=== PATIENT | female | born 1940 | race Caucasian/White ===

== ENCOUNTER 2016-09-30 07:20 | Day surgery (SDC) | payer MEDICARE ==
[2016-09-30] VITALS (8 sets, daily range): BP systolic 126–157; BP diastolic 75–86; PULSE 74–87; TEMP 97.1
[~2016-09-30] VITALS: Ht 154.9 cm; Wt 88.4 kg
[2016-09-30] MEDS ORDERED: BENICAR 20MG TA20 MG PO (08:54)
[2016-09-30] MEDS ORDERED: MOBIC15 MG PO (08:54)
[2016-09-30] MEDS ORDERED: ZYRTEC 10MG10 MG PO (08:55)
== END 2016-09-30 11:20 | disposition home or self-care (01) ==
LOC: SDCO 07:20
DX: Z12.11 Encounter for screening for malignant neoplasm of colon (principal); K57.30 Diverticulosis of large intestine without perforation or abscess without bleeding; K64.0 First degree hemorrhoids; I10 Essential (primary) hypertension; M19.90 Unspecified osteoarthritis, unspecified site
CPT/HCPCS: OP; J2250; J3010; J7030